=== PATIENT | female | born 1965 | race Caucasian/White ===

== ENCOUNTER 2021-02-13 07:42 | Day surgery (SDC) | payer MEDICARE, OTHER, SELFPAY ==
[2021-01-16 09:56] VITALS: BMI 33.0
--- NOTE | 2021-01-31 12:58 | HP_ITS ---
DATE OF SERVICE: 02/13/2021 DATE OF PROPOSED SURGERY: February 13, 2021. PREOPERATIVE DIAGNOSIS: Hallux rigidus, right first metatarsophalangeal joint. PLANNED PROCEDURE: An arthrodesis of the right first metatarsophalangeal joint using the [employer] CheckMate system. PLANNED ANESTHESIA: Either MAC or general. CHIEF COMPLAINT AND HISTORY OF PRESENT ILLNESS: Elisabet Fall is a 55-year-old female, who relates history of painful arthritic right great toe joint, present over the past several years' duration. Her pain is aggravated by shoe gear and walking activity. Conservative treatment consisting of multiple cortisone injections from the arthritis treatment center as well as use of topical pain relief medications has not helped. The patient also tried altered shoe gear, which did not help. The patient is now requesting surgical treatment. PAST MEDICAL HISTORY: Remarkable for arthritis, history of liver disease, psoriasis, Sjogren syndrome. CURRENT MEDICATIONS: The patient has Ocaliva, omeprazole, Salagen, Tremfya, or ursodiol. ALLERGIES: THE PATIENT HAS NEGATIVE REACTION TO CODEINE. FAMILY HISTORY: Significant for heart disease and cancer. SOCIAL HISTORY: The patient denies use of any recreational drugs. She relates she is smoking, but is trying to cut down on her consumption to less than half a pack a day and hopefully stop smoking altogether prior to surgery. I have emphasized to the patient preoperatively the importance of smoking cessation to overall healing as well as bone healing specifically. The patient does relate alcohol consumption and also relates that she drinks caffeinated drinks daily. PHYSICAL EXAMINATION: VASCULAR: Reveals normal pulses. Normal cap refill time noted in bilateral feet. NEUROLOGIC: Reveals intact sensation. The patient has pain on palpation dorsum right first metatarsophalangeal joint. ORTHOPEDIC: Reveals extremely limited and painful range of motion of the right first metatarsophalangeal joint with painful dorsal exostosis noted. DERMATOLOGIC: Reveals intact skin. The patient was seen most recently in my office on January 28, 2021. Preoperative informed consent has been obtained from the patient for a planned right foot surgery. Preoperative medical clearance will be provided by the patient's primary care physician, Dr. Raghavendra Branch. GAEL Miller / [phone]
--- NOTE | 2021-02-12 12:04 | HO.ANESPROP2 ---
Documented by User: Carrie Vallejo NP 02/12/21 12:07 HPI - Anesthesia Eval Consult details Narrative: 55yo F for Right 1st Metatarsophalangeal Joint Foot Arthrodesis PCP cleared [facility] Past Medical History Medical History (Updated 02/13/21 @ 08:27 by Ana Laura Norris MD) Cholelithiasis Cirrhosis COVID-19 vaccine series completed Depression GERD (gastroesophageal reflux disease) Hx of Sjogren's disease IBS (irritable bowel syndrome) Osteopenia Psoriatic arthritis Surgical History Surgical History H/O colonoscopy History of ankle surgery History of esophagogastroduodenoscopy (EGD) History of lumbar spinal fusion Hx of cervical discectomy Hx of foot surgery Hx of hand surgery Hx of tonsillectomy Social History Social History (Updated 02/13/21 @ 09:23 by Ana Laura Norris MD) Household Members Other:: children & grandchildren Patient Tobacco Use Status: Current everyday Tobacco user Tobacco use type: Cigarette Cigarette Packs Per Day: 1 Cigarettes Per Day: 20.0 Smoked in Last 30 Days: Yes Use of substances other than those prescribed or required for medical reasons: No Advance Directives: No Advance Directives Information Provided: Yes (informational brochure mailed) Advance Directives on File: No Meds Allergies Allergy/AdvReac Type Severity Reaction Status Date / Time codeine Allergy Intermediate Nausea Verified 02/13/21 07:50 Home Medications Medication Instructions Recorded Confirmed Last Taken Type acetaminophen 325 mg capsule 650 mg PO Q6H PRN 01/16/21 01/16/21 Unknown History (Tylenol) albuterol sulfate 90 mcg/actuation 2 puff INHALATION Q6H PRN 01/16/21 01/16/21 Unknown History aerosol inhaler (ProAir HFA) gabapentin 600 mg tablet 600 mg PO TID 01/16/21 01/16/21 02/13/21 06:45 History guselkumab 100 mg/mL subcutaneous 100 mg SUBCUT Q8W 01/16/21 01/16/21 Unknown History auto-injector (Tremfya) omeprazole 20 mg tablet,delayed 20 mg PO DAILY 01/16/21 01/16/21 Unknown History release pilocarpine HCl 5 mg tablet 5 mg PO QID 01/16/21 01/16/21 02/13/21 06:45 History ursodiol 300 mg capsule 600 mg PO TID 01/16/21 01/16/21 02/13/21 06:45 History Exam Exam Date and Time: February 12, 2021 1204 Height,Weight and Vital Signs: Height 5 ft 10 in Weight 104.6 kg Pertinent Lab Results Pertinent Lab Results: Labs from outside facility. CBC and CMP WNL except elevated alk phos @ 237 Narrative Narrative: EKG 12/2020 NSR @ 83 Assessment and Plan Assessment Anesthesia Assessment: Chart Reviewed Documented by User: Ana Laura Norris MD 02/13/21 09:25 PMFSH Past Medical History Medical History (Updated 02/13/21 @ 08:27 by Ana Laura Norris MD) Cholelithiasis Cirrhosis COVID-19 vaccine series completed Depression GERD (gastroesophageal reflux disease) Hx of Sjogren's disease IBS (irritable bowel syndrome) Osteopenia Psoriatic arthritis Family History Family history of problems with anesthesia: No Surgical History Surgical History H/O colonoscopy History of ankle surgery History of esophagogastroduodenoscopy (EGD) History of lumbar spinal fusion Hx of cervical discectomy Hx of foot surgery Hx of hand surgery Hx of tonsillectomy History of Problems with Anesthesia: No Social History Social History (Updated 02/13/21 @ 09:23 by Ana Laura Norris MD) Household Members Other:: children & grandchildren Patient Tobacco Use Status: Current everyday Tobacco user Tobacco use type: Cigarette Cigarette Packs Per Day: 1 Cigarettes Per Day: 20.0 Smoked in Last 30 Days: Yes Use of substances other than those prescribed or required for medical reasons: No Advance Directives: No Advance Directives Information Provided: Yes (informational brochure mailed) Advance Directives on File: No Meds Allergies Allergy/AdvReac Type Severity Reaction Status Date / Time codeine Allergy Intermediate Nausea Verified 02/13/21 07:50 Home Medications Medication Instructions Recorded Confirmed Last Taken Type acetaminophen 325 mg capsule 650 mg PO Q6H PRN 01/16/21 01/16/21 Unknown History (Tylenol) albuterol sulfate 90 mcg/actuation 2 puff INHALATION Q6H PRN 01/16/21 01/16/21 Unknown History aerosol inhaler (ProAir HFA) gabapentin 600 mg tablet 600 mg PO TID 01/16/21 01/16/21 02/13/21 06:45 History guselkumab 100 mg/mL subcutaneous 100 mg SUBCUT Q8W 01/16/21 01/16/21 Unknown History auto-injector (Tremfya) omeprazole 20 mg tablet,delayed 20 mg PO DAILY 01/16/21 01/16/21 Unknown History release pilocarpine HCl 5 mg tablet 5 mg PO QID 01/16/21 01/16/21 02/13/21 06:45 History ursodiol 300 mg capsule 600 mg PO TID 01/16/21 01/16/21 02/13/21 06:45 History Exam Height,Weight and Vital Signs: Height 5 ft 10 in Weight 104.6 kg Vital Signs Temp Pulse Resp BP Pulse Ox 02/13/21 07:58 98.0 F 78 16 145/88 H 99 Airway Mallampati Class: II TM Dist: >3cm Neck ROM: Full Loose/Missing/Broken Teeth: Yes (Top front bridge) Heart: RRR Lungs: CTAB Assessment and Plan Assessment Anesthesia Assessment: Anesthesia Plan Discussed Final Anesthetic Review Family History of Problems with Anesthesia: No History of Problems with Anesthesia: No NPO: Yes ASA Class: III Final Preanesthetic Review: No Changes in Pt Med Stat, Meds/Allgs Chart Reviewed, Consent Obtained/Reviewed and Anes Risks/Benef Reviewed Patient Risk: Intermediate Procedure Risk: Low Assessment/Block/Sedation in SS: Assess/Block/Sedation-SS Anesthetic Plan Anesthetic Plan: GA and MAC: Disposition: Standard PACU
--- NOTE | ~2021-02-13 | FL_ITS ---
EXAMINATION: XR FLUOROSCOPY WITH IMAGES CLINICAL INFORMATION: Foot surgery COMPARISON: None. TECHNIQUE: Fluoroscopy performed by Dr. Raymond. Fluoroscopy time: 3 seconds DAP: 3 2007 [id number] Images: 1 FINDINGS: There is a plate and screws overlying the dorsal side first MTP. Visualized hardware intact. FL/FL guidance in OR IMPRESSION: Fluoroscopy for foot surgery.
[2021-02-13 07:58] VITALS: BP 145/88; PULSE 78; RESP 16; TEMP 36.7; O2SAT 99
[2021-02-13] MEDS: Lactated Ringers 1,000 ML 100 ML IVCONT (08:15)
--- NOTE | 2021-02-13 08:38 | MHC.SHP ---
Pre-Procedural Eval Section A Date of Service: 02/13/21 The patient is an INPATIENT: No Changes since office visit: No Cold of Flu in the past 2 weeks, No New Medical Problems, No Changes in Medication and No Patient answered all questions The History & Physical has been completed within 30 days and I have reviewed it.: Yes Section B Chief Complaint: Hallux Rigidus Relevant Social History: Tobacco Use Medical History: No relevant PMH History of Previous Operations: No relevant previous surgery Allergies: Allergies Allergy/AdvReac Type Severity Reaction Status Date / Time codeine Allergy Intermediate Nausea Verified 02/13/21 07:50 Plan Diagnosis/Plan: Unchanged I have reviewed the history and physical and performed a pertinent physical examination on my patient. No changes have occurred unless specified.
[2021-02-13 10:16] VITALS: BP 135/78; PULSE 79; RESP 20; TEMP 36.1; O2SAT 99
--- NOTE | 2021-02-13 10:17 | PCN2_ITS ---
Brief Operative Note Date of procedure: 02/13/21 Pre-op diagnosis: hallux rigidus right Post-op diagnosis: same Procedure: arthrodesis right first mtpj with checkmate system Anesthesia: LONGA Surgeon: Mark Raymond [employer] Processor: Marianela Blackwood Estimated blood loss (mL): 1.0 Condition: stable Disposition: PACU
[2021-02-13] MEDS: Acetaminophen 325 MG TABLET 650 MG PO (10:20)
[2021-02-13 10:31] VITALS: BP 140/82; PULSE 76; RESP 16
--- NOTE | 2021-02-13 11:44 | OP_ITS ---
SURGEON: Mark Raymond DPM PREOPERATIVE DIAGNOSIS: Hallux rigidus, right foot. POSTOPERATIVE DIAGNOSIS: Hallux rigidus, right foot. PROCEDURE PERFORMED: Arthrodesis of the right first metatarsophalangeal joint utilizing the CrossCHECK plating system. ESTIMATED BLOOD LOSS: COMPLICATIONS: ANESTHESIA: Consisted of general endotracheal anesthesia as well as preoperative administration of a total of 12 mL of an equal mix of 2% lidocaine with epinephrine 1:100,000 and 0.5% Marcaine plain. ASSISTANTS: Dr. Blackwood. SPECIMENS: INTRODUCTION: The patient was brought to the operating room, placed on the operating table in the supine position. After having been suitably anesthetized with local infiltrative anesthesia, the right lower extremity was then prepped and draped in the usual sterile manner. ARTHRODESIS OF THE RIGHT FIRST METATARSOPHALANGEAL JOINT. Attention was directed to the dorsum of the right first metatarsophalangeal joint, where an incision approximately 8 cm in length was effected and centered over the dorsum of the right first metatarsophalangeal joint. Incision was deepened in the same plane and hemostasis was acquired as necessary. The skin margins were underscored and retracted. A dorsal linear capsule incision was effected. The capsule and periosteum were underscored and retracted. Utilizing the CrossCHECK plating system from [employer], both the head of the metatarsal and base of the proximal phalanx were shaped to accommodate 18 mm cone for the plating system. Once the entire articular surfaces had denuded and denuded of all cartilage and brought down to subchondral bleeding bone, then the joint was further prepared by drilling through the subchondral bone multiple times through both the first metatarsal head and base of proximal phalanx. A small amount of Vitoss was placed inside the joint to help stimulate bony union and bone healing. Then utilizing the CrossCHECK plating system, it was fixated initially with 2 stabilizing K-wires in the proximal holes and then appropriate drilling and fixation utilizing 4 locking screws through the 4 dorsal holes and then the 1 nonlocking screw, all 3.5 mm diameter, placed in the angular from dorsal distal to proximal crossing the first MTP joint. All the fixation was done under mini C-arm visualization. Unfortunately, we did have malfunction with mini C-arm and techs had entered the room to try to straighten it out after turning the system off and restarting the mini C-arm, then functioned normally. The wound was irrigated. Capsule was closed with 3-0 Vicryl. Skin margin was closed with 4-0 Maxon subcuticular and then reinforced with 4-0 nylon simple sutures. Steri-Strips were applied. The postoperative surgical site was injected with 5 mL of Marcaine 0.5% plain and 1 mL of dexamethasone phosphate. Sterile dressings were applied to the right lower extremity. The right ankle tourniquet was deflated. Normal blood flow was reestablished to the right lower extremity. The patient was discharged to Recovery via cart with vital signs stable. FINAL DISPOSITION: The patient is discharged to home with instructions for self-care and include the followin. To keep the dressings dry, clean, and intact. 2. To keep the right leg elevated with ice above the ankle. 3. To take all medications as prescribed. 4. To limit activity to minimum. 5. To always use surgical shoe or walking cast boot, but maintain strict nonweightbearing status on the right lower extremity either utilizing her crutches or the knee scooter, which she has already picked up preoperatively. 6. The patient will be taking naproxen 500 mg, total number of 20 one p.o. b.i.d. p.c., doxycycline 100 mg for 10 days daily; oxycodone 5 mg total number of 20, sig 1 p.o. q.6 hours p.r.n. pain, and lastly, prescription for gabapentin 400 mg total number of 30 one p.o. t.i.d. p.r.n. pain. GAEL Miller / [phone]
== END 2021-02-13 11:46 | disposition home or self-care (01) ==
PROVIDERS: PCP Internal Medicine; Visit Provider Podiatrist
PROC: (CPT 28740; principal; 2021-02-13 09:10)
DX: M20.21 Hallux rigidus, right foot (principal); L40.50 Arthropathic psoriasis, unspecified; M35.00 Sjogren syndrome, unspecified; Z79.899 Other long term (current) drug therapy
CPT/HCPCS: 28291; 88304; 88311; C1713; J0690; J1100; J1885; J2370; J2405; J3010

== ENCOUNTER 2022-08-12 09:23 | Emergency (ER) | payer MEDICARE, OTHER, SELFPAY ==
--- NOTE | ~2022-08-12 | XR_ITS ---
EXAMINATION: XR CHEST CLINICAL INFORMATION: Chest pain COMPARISON: None available. TECHNIQUE: 2 views of the chest were obtained. FINDINGS: No significant abnormality is noted involving the heart, lungs, mediastinum, bony thorax or soft tissues. Surgical clips noted at the lower neck. XR/XR chest 2V IMPRESSION: Unremarkable examination.
[2022-08-12 09:26] VITALS: BP 135/66; PULSE 89; RESP 19; TEMP 36.6; O2SAT 97; BMI 33.9
--- NOTE | 2022-08-12 09:27 | ECG_ITS ---
Test Reason : CHEST PAIN Blood Pressure : / mmHG Vent. Rate : 078 BPM Atrial Rate : 078 BPM P-R Int : 158 ms QRS Dur : 094 ms QT Int : 372 ms P-R-T Axes : 008 021 031 degrees QTc Int : 424 ms Normal sinus rhythm Normal ECG No previous ECGs available Referred By: Generic ED Physician Electronically Signed By:DEEP TALBOT MD
--- NOTE | 2022-08-12 10:08 | ED_ITS ---
HPI - Chest Pain General Chief Complaint: Chest Pain Stated Complaint: Chest pain Time Seen by Provider: 08/12/22 10:08 Source: patient Mode of arrival: ambulatory Limitations: no limitations History of Present Illness HPI narrative: Patient is a 56-year-old female with history of GERD, IBS, cholelithiasis, cirrhosis presenting with midsternal chest pain since Wednesday night around 6pm. She states that the pain has been constant since onset and occasionally radiates to her left anterior chest. Pain worsens with eating or drinking, worse after belching. Tried Gaviscon without relief. Feels as though something is stuck there. Has been able to tolerate food and fluid without difficulty. History of GERD but reports this does not feel similar. Denies nausea, vomiting, diarrhea, or constipation. Denies fevers. Denies shortness of breath or cough, pain does not increase with deep inspiration. MD complaint: chest pain Onset (ago): day(s) Timing of current episode: constant Prior episodes: No Onset: during rest and after eating Pain location: substernal and epigastric Pain radiation: none Pain scale (0-10): 4 Quality: sharp Relieving factors: nothing Exacerbating factors: eating Related Data Home Medications Medication Instructions Recorded Confirmed acetaminophen 325 mg capsule 650 mg PO Q6H PRN Pain 01/16/21 01/16/21 (Tylenol) albuterol sulfate 90 mcg/actuation 2 puff inhalation Q6H PRN 01/16/21 01/16/21 aerosol inhaler (ProAir HFA) Shortness Of Breath gabapentin 600 mg tablet 600 mg PO TID 01/16/21 01/16/21 guselkumab 100 mg/mL subcutaneous 100 mg subcut Q8W 01/16/21 01/16/21 auto-injector (Tremfya) omeprazole 20 mg tablet,delayed 20 mg PO DAILY 01/16/21 01/16/21 release pilocarpine HCl 5 mg tablet 5 mg PO QID 01/16/21 01/16/21 ursodiol 300 mg capsule 600 mg PO TID 01/16/21 01/16/21 Allergies Allergy/AdvReac Type Severity Reaction Status Date / Time codeine Allergy Intermediate Nausea Verified 02/13/21 07:50 Review of Systems Review of Systems: As per HPI. Yes all other systems are reviewed and are negative Constitutional: Constitutional: Reports no additional constitutional complaints Cardiovascular: Cardiovascular: Reports no additional cardiovascular complaints Respiratory: Respiratory: Reports no additional respiratory complaints Gastrointestinal: Gastrointestinal: Reports no additional gastrointestinal complaints Genitourinary: Genitourinary: Reports no additional female genitourinary complaints Musculoskeletal: Musculoskeletal: Reports no additional musculoskeletal complaints Neurologic: Reports system reviewed and no additional complaints, except as documented [facility] Past Medical History Medical History (Updated 08/12/22 @ 12:36 by Karly Zendejas NP) Cholelithiasis Cirrhosis COVID-19 vaccine series completed Depression GERD (gastroesophageal reflux disease) Hx of Sjogren's disease IBS (irritable bowel syndrome) Osteopenia Psoriatic arthritis Surgical History H/O colonoscopy History of ankle surgery History of esophagogastroduodenoscopy (EGD) History of lumbar spinal fusion Hx of cervical discectomy Hx of foot surgery Hx of hand surgery Hx of tonsillectomy Social History Social History (Updated 02/13/21 @ 09:23 by Ana Laura Norris MD) Household Members Other:: children & grandchildren Patient Tobacco Use Status: Current everyday Tobacco user Tobacco use type: Cigarette Cigarette Packs Per Day: 1 Cigarettes Per Day: 20.0 Advance Directives: No Advance Directives Information Provided: Yes Physical Exam Vital Signs: Vital Signs: Last Vital Signs Temp 98 F 08/12/22 09:26 Pulse 89 08/12/22 09:26 Resp 19 08/12/22 09:26 BP 135/66 08/12/22 09:26 Pulse Ox 97 08/12/22 09:26 O2 Del Method Room Air 08/12/22 09:26 BMI result Body Mass Index 33.9 Vital signs have been reviewed and appear to be correct. Blood pressure normal. Heart rate normal. Respiratory rate normal. Temperature normal. Oxygen saturation normal. Const: General: cooperative, healthy appearing and no acute distress Orientation/consciousness: oriented to person, oriented to place, oriented to time and patient oriented x3 Limitations: no limitations HEENT: Head: Yes normocephalic and Yes atraumatic Ears: external ears normal General nose exam: Normal external nose present Face and sinus: Yes face symmetric Mouth: oropharynx normal and moist mucous membranes Throat: Yes uvula midline Eyes: Pupils: Equal, round and reactive pupils present Neck: Neck: Yes normal visual inspection and Yes supple Resp: Effort & Inspection: normal respiratory effort and able to speak in complete sentences Auscultation: clear to auscultation bilaterally Cardio: Rate: regular rate Rhythm: regular rhythm Heart sounds: S1 normal heart sound present and S2 normal heart sound present GI: Palpation (GI): Soft to palpation and nontender Auscultation: normoactive bowel sounds : General: Yes no CVA tenderness Back/Spine/Pelvis: Back: no CVA tenderness Skin: General skin exam: elasticity normal and turgor normal Neuro: General: oriented to person, oriented to place, oriented to time, patient oriented x3, moves all extremities, no focal motor deficits and CN's II- XI intact bilaterally Cranial nerves: Yes Equal, round and reactive pupils present Cognition (Neuro): normal cognition Extrem: General: Yes full ROM, Yes no pedal edema and Yes no calf tenderness Psych: Mental Status: mental status grossly normal Affect: normal affect Thought process: Normal thought process present Course Reevaluation(s) Reevaluation #1: Labs unremarkable other than elevated alk phos, however patient has known liver disease. Feel patient is stable for discharge home with GI follow up. All results discussed with patient and all questions answered, return precautions discussed at bedside. Patient is agreeable with plan. Time: 12:31 Medications Administered Discontinued Medications Generic Name Dose Route Start Last Admin Trade Name Charlieq PRN Reason Stop Dose Admin Al Hydroxide/Mg Hydroxide 15 ml 08/12/22 10:44 08/12/22 11:33 Magnesium Hydrox/Alum Hydrox 30 Ml Oral.Susp PO 08/12/22 10:45 15 ml ONCE ONE Administration Lidocaine HCl 5 ml 08/12/22 10:44 08/12/22 11:33 Lidocaine Hcl Viscous 2 % 15 Ml Solution MUCOUS MEM 08/12/22 10:45 5 ml ONCE ONE Administration Pantoprazole Sodium 40 mg 08/12/22 10:44 08/12/22 11:34 Pantoprazole Sodium 40 Mg/10 Ml Vial IVPUSH 08/12/22 10:45 40 mg ONCE ONE Administration Medical Decision Making Medical Decision Making [facility] Narrative: Patient is a 56-year-old female with history of GERD, IBS, cholelithiasis, cirrhosis presenting with midsternal chest pain since Moody night around 6pm. No evidence of STEMI on EKG. On exam patient is awake, A+Ox3, in no acute distress, nontoxic appearing, RRR, LS CTA, ABD SNT. Concern for ACS vs GERD. Other differential diagnoses could include pancreatitis, PUD, cholecystitis, biliary colic. Unlikely aortic dissection, esophageal rupture, PE, PTX, pericarditis/endocarditis. Plan: labs, CXR, GI cocktail, reassess Please refer to course for remaining clinical decision making. Differential Diagnosis Differential Diagnoses: The differential diagnosis associated with the presentation includes As above. Admission/Observation Consideration of admission/observation: Escalation of care including admission/observation considered Lab Data MDM Lab Attestation statement: I reviewed the patient's lab results. 08/12/22 10:37 08/12/22 10:37 Labs: Lab Results 08/12/22 08/12/22 08/12/22 Range/Units 10:37 10:37 10:37 WBC 7.6 (4.8-10.8) X10*3/uL RBC 4.53 (4.20-5.50) X10*6/uL Hgb 10.9 L (12.0-16.0) g/dl Hct 35.7 L (37.0-47.0) % MCV 78.8 L (80.0-98.0) fL MCH 24.1 L (27.0-33.0) pg MCHC 30.5 L (31.0-35.0) g/dl RDW 16.3 H (11.0-16.0) % Plt Count 152 L (160-400) X10*3/uL MPV 10.5 (9.4-12.3) fL Immature Gran % (Auto) 0.1 (0.0-0.4) % Neut % (Auto) 69.7 (45-73) % Lymph % (Auto) 16.1 L (20-40) % [place] % (Auto) 12.3 H (2-11) % Eos % (Auto) 1.4 (0-4) % Baso % (Auto) 0.4 (0-2) % Lymph # (Auto) 1.2 (1.2-4.9) X10*3/uL [place] # (Auto) 0.9 (0.1-1.2) X10*3/uL Eos # (Auto) 0.1 (0.0-0.4) X10*3/uL Baso # (Auto) 0.0 (0.0-0.2) X10*3/uL Abs Immat Gran (auto) 0.01 (0.00-0.03) X10*3/uL Absolute Neuts (auto) 5.3 (2.0-8.3) x10*3/uL Absolute Nucleated RBC 0.000 (0.0-0.012) X10*3/uL Nucleated RBC % (auto) 0.0 (0.0-0.2) /100WBC PT 11.5 (10.0-13.1) SEC INR 1.0 (0.9-1.1) Sodium (135-145) mmol/L Potassium (3.3-5.1) mmol/L Chloride (96-108) mmol/L Carbon Dioxide (22-29) mmol/L Anion Gap (12-20) BUN (9-16) mg/dL Creatinine (0.5-1.4) mg/dL Estim Creat Clear Calc Estimated GFR Random Glucose (60-115) mg/dL Calcium (8.4-10.2) mg/dL Magnesium (1.6-2.6) mg/dL Total Bilirubin (0.0-1.0) mg/dL AST (5-31) U/L ALT (0-31) U/L Alkaline Phosphatase (39-117) U/L Troponin I High Sens < 2.7 (<3.5-17.0) ng/L Total Protein (6.5-8.0) g/dL Albumin (3.5-5.0) g/dL Lipase (8-78) U/L 08/12/22 Range/Units 11:22 WBC (4.8-10.8) X10*3/uL RBC (4.20-5.50) X10*6/uL Hgb (12.0-16.0) g/dl Hct (37.0-47.0) % MCV (80.0-98.0) fL MCH (27.0-33.0) pg MCHC (31.0-35.0) g/dl RDW (11.0-16.0) % Plt Count (160-400) X10*3/uL MPV (9.4-12.3) fL Immature Gran % (Auto) (0.0-0.4) % Neut % (Auto) (45-73) % Lymph % (Auto) (20-40) % [place] % (Auto) (2-11) % Eos % (Auto) (0-4) % Baso % (Auto) (0-2) % Lymph # (Auto) (1.2-4.9) X10*3/uL [place] # (Auto) (0.1-1.2) X10*3/uL Eos # (Auto) (0.0-0.4) X10*3/uL Baso # (Auto) (0.0-0.2) X10*3/uL Abs Immat Gran (auto) (0.00-0.03) X10*3/uL Absolute Neuts (auto) (2.0-8.3) x10*3/uL Absolute Nucleated RBC (0.0-0.012) X10*3/uL Nucleated RBC % (auto) (0.0-0.2) /100WBC PT (10.0-13.1) SEC INR (0.9-1.1) Sodium 139 (135-145) mmol/L Potassium 4.0 (3.3-5.1) mmol/L Chloride 105 (96-108) mmol/L Carbon Dioxide 27 (22-29) mmol/L Anion Gap 11 L (12-20) BUN 8 L (9-16) mg/dL Creatinine 0.80 (0.5-1.4) mg/dL Estim Creat Clear Calc 101.5 Estimated GFR > 60 Random Glucose 114 (60-115) mg/dL Calcium 8.7 (8.4-10.2) mg/dL Magnesium 2.1 (1.6-2.6) mg/dL Total Bilirubin 1.0 (0.0-1.0) mg/dL AST 20 (5-31) U/L ALT 17 (0-31) U/L Alkaline Phosphatase 193 H (39-117) U/L Troponin I High Sens (<3.5-17.0) ng/L Total Protein 7.4 (6.5-8.0) g/dL Albumin 3.6 (3.5-5.0) g/dL Lipase 59 (8-78) U/L Independent Interpretation I performed an independent interpretation of an: EKG and Plain X-Ray Interpretation: EKG: normal sinus rhythm, rate 78bpm, normal MI and QT intervals, no evidence of STEMI; I independently reviewed the x-ray and agree with the radiologist's interpretation. Radiology Impression Discussion of test interpretation with radiology: I have reviewed the radiologist's reading. Radiologist Impression: FINDINGS: No significant abnormality is noted involving the heart, lungs, mediastinum, bony thorax or soft tissues. Surgical clips noted at the lower neck. XR/XR chest 2V IMPRESSION: Unremarkable examination. External Record Review External record reviewed: Inpatient record, Office record and Outpatient record Prescription Management I considered prescription management with: Pain Medication Discharge Plan Discharge Clinical Impression: Chest pain Patient Disposition: Home, Self-Care Instructions: Chest Pain (DC) Additional Instructions: You were evaluated in the emergency department today for chest pain. Your evaluation has shown no signs of medical conditions requiring emergent intervention at this time, however we recommend that you follow-up with your primary care physician as well as a department of natural resources officer as soon as possible for further testing as an outpatient. Please schedule an appointment for follow-up with your primary care physician as soon as possible. Return to the emergency department if you experience worsening or uncontrolled chest pain, shortness of breath, lightheadedness, feeling faint, loss of consciousness, nausea, vomiting, or any other concerning symptoms. Prescriptions: No Action pilocarpine HCl 5 mg Tablet 5 mg PO QID gabapentin 600 mg Tablet 600 mg PO TID ursodiol 300 mg Capsule 600 mg PO TID albuterol sulfate [ProAir HFA] 90 mcg/actuation Hfa Aerosol Inhaler 2 puff INHALATION Q6H PRN (Reason: Shortness Of Breath) acetaminophen [Tylenol] 325 mg Capsule 650 mg PO Q6H PRN (Reason: Pain) omeprazole 20 mg Tablet,Delayed Release (Dr/Ec) 20 mg PO DAILY Tremfya 100 mg/mL Auto-Injector 100 mg SUBCUT Q8W Referrals: [facility] [place] [facility] [Provider Group]
[2022-08-12 10:50] LABS: MANUAL DIFF FLAG NO
[2022-08-12 10:52] LABS: Basophils Percent Auto 0.4 % (0-2); Eosinophils Absolute Auto 0.1 X10*3/uL (0.0-0.4); Eosinophils Percent Auto 1.4 % (0-4); Hematocrit 35.7 % (37.0-47.0); Hemoglobin 10.9 g/dl (12.0-16.0); Imm Gran Abs Auto 0.01 X10*3/uL (0.00-0.03); Imm Gran Pct Auto 0.1 % (0.0-0.4); Lymphocytes Absolute Auto 1.2 X10*3/uL (1.2-4.9); Lymphocytes Percent Auto 16.1 % (20-40); Mean Corpuscular HGB Conc 30.5 g/dl (31.0-35.0); Mean Corpuscular Hemoglobin 24.1 pg (27.0-33.0); Mean Corpuscular Volume 78.8 fL (80.0-98.0); Mean Platelet Volume 10.5 fL (9.4-12.3); Monocytes Absolute Auto 0.9 X10*3/uL (0.1-1.2); Monocytes Percent Auto 12.3 % (2-11); Neutrophils Absolute Auto 5.3 x10*3/uL (2.0-8.3); Neutrophils Percent Auto 69.7 % (45-73); Platelet Count 152 X10*3/uL (160-400); Red Blood Count 4.53 X10*6/uL (4.20-5.50); Red Cell Distribution Width 16.3 % (11.0-16.0); White Blood Count 7.6 X10*3/uL (4.8-10.8)
[2022-08-12 10:58] LABS: Prothrombin Time 11.5 SEC (10.0-13.1)
[2022-08-12 11:13] LABS: Troponin-I High Sensitivity < 2.7 ng/L (<3.5-17.0)
[2022-08-12] MEDS: Lidocaine HCl Viscous 2 % 15 ML SOLUTION 5 ML MUCOUS MEM (11:33)
[2022-08-12] MEDS: Magnesium Hydrox/Alum Hydrox 30 ML ORAL.SUSP 15 ML PO (11:33)
[2022-08-12] MEDS: Pantoprazole Sodium 40 MG/10 ML VIAL IVPUSH (11:34)
[2022-08-12 11:43] LABS: Alanine Aminotransferase 17 U/L (0-31); Albumin Level 3.6 g/dL (3.5-5.0); Alkaline Phosphatase 193 U/L (39-117); Anion Gap 11 (12-20); Aspartate Amino Transferase 20 U/L (5-31); Blood Urea Nitrogen 8 mg/dL (9-16); Calcium 8.7 mg/dL (8.4-10.2); Carbon Dioxide 27 mmol/L (22-29); Chloride 105 mmol/L (96-108); Creatinine Clr Calc Pharmacy 101.5; Estimated Glomerular Filt Rate > 60; Glucose Random 114 mg/dL (60-115); Lipase 59 U/L (8-78); Magnesium 2.1 mg/dL (1.6-2.6); Sodium 139 mmol/L (135-145); Total Protein 7.4 g/dL (6.5-8.0)
== END 2022-08-12 13:10 | disposition home or self-care (01) ==
PROVIDERS: Registered Nurse Emergency; Emergency Provider Emergency Medicine; PCP Internal Medicine
DX: R07.9 Chest pain, unspecified (principal)
CPT/HCPCS: 36415; 71046; 80053; 83690; 83735; 84484; 85025; 85610; 93005; 96374; 99283; 99284

== ENCOUNTER 2023-01-20 17:25 | Emergency (ER) | payer MEDICARE, OTHER, SELFPAY ==
--- NOTE | ~2023-01-20 | XR_ITS ---
EXAMINATION: XR RIBS, RIGHT CLINICAL INFORMATION: Right rib pain COMPARISON: Previous chest x-ray July 2022 TECHNIQUE: 3 views of the right ribs and one view of the chest were obtained. FINDINGS: The cardiac and mediastinal contours are normal. Minimal subsegmental atelectasis lateral mid right lung. The lungs are otherwise clear. No pleural effusion or pneumothorax. No acute rib fracture. Old right second and seventh rib fractures. Postsurgical changes of the cervical spine. XR/XR ribs RT min 3V w CXR1V IMPRESSION: No acute rib fracture. No evidence for acute disease in the chest.
--- NOTE | ~2023-01-20 | CT_ITS ---
EXAMINATION: CT CHEST WITHOUT CONTRAST CLINICAL INFORMATION: Severe right-sided pain. Fall. COMPARISON: Chest and right rib x-rays from earlier the same day TECHNIQUE: Multidetector volumetric CT imaging of the chest was done. Axial MIP volume rendering provided. Sagittal and coronal reformatted images were obtained. This CT examination was performed using dose optimization techniques as appropriate, variously including the following: *Automated exposure control *Adjustment of mA and/or kV according to patient size (this includes techniques or standardized protocols for targeted exams where dose is matched to indication/reason for exam; i.e. extremities or head) *Use of iterative reconstruction technique DLP: 405 mGy-cm FINDINGS: SENSITIZER: LUNGS: 3 mm calcified right upper lobe nodule axial image 27 series 3. Subsegmental atelectasis in the right middle lobe and lingula. Centrilobular emphysema. Heterogeneous attenuation in the lungs questionable areas of air-trapping versus pneumonitis. MEDIASTINUM: Small mediastinal lymph nodes. No enlarged lymph nodes. Normal heart size. No pericardial effusion. Normal caliber thoracic aorta.. CORONARY ARTERY CALCIFICATION: None visualized on this study. PLEURA: There is no pleural effusion. No pleural mass or thickening. No pneumothorax AXILLA: Small bilateral axillary lymph nodes. No chest wall mass or enlarged axillary lymph nodes UPPER ABDOMEN: Cirrhosis and mild hepatosplenomegaly. Question gallstone in the gallbladder. Small left renal stone OSSEOUS STRUCTURES: No acute fracture. Old right second rib fracture. Postsurgical changes to the lower cervical spine. CT/CT chest wo IV con IMPRESSION: No acute disease in the chest. No acute rib fracture seen. Centrilobular emphysema and question cystic changes. Heterogeneous attenuation in the lungs, question representing hypoventilatory changes related to air trapping versus pneumonitis. Abdominal findings as above. Fleischner guidelines were followed.
[2023-01-20 17:53] VITALS: BP 207/86; PULSE 87; RESP 20; TEMP 36.8; O2SAT 97; BMI 30.1
--- NOTE | 2023-01-20 17:55 | ED_ITS ---
HPI - General Adult General Chief complaint: Fall Stated complaint: fell @230p, landed on chest. hurts to breathe Time Seen by Provider: 01/20/23 19:54 Source: patient Mode of arrival: ambulatory Limitations: no limitations History of Present Illness HPI narrative: 57 yo female with PMH of asthma, GERD, not on thinners who went to get up today from her chair when her dogs got under her feet. She does have chronic back pain as well - she fell on the ground after trying to catch herself and landed on R ribs under the arm - it hurts to move and breathe. No head strike or other injury. MD complaint: rib pain after a fall Onset (ago): hour(s) (this AM) Location: chest Radiation: back Severity: severe Quality: stabbing Pain Consistency: constant Relieving factors: rest Exacerbating factors: movement and other (breathing) Associated symptoms: denies other symptoms Treatments prior to arrival: none Related Data Home Medications Medication Instructions Recorded Confirmed acetaminophen 325 mg capsule 650 mg PO Q6H PRN Pain 01/16/21 01/16/21 (Tylenol) albuterol sulfate 90 mcg/actuation 2 puff inhalation Q6H PRN 01/16/21 01/16/21 aerosol inhaler (ProAir HFA) Shortness Of Breath gabapentin 600 mg tablet 600 mg PO TID 01/16/21 01/16/21 guselkumab 100 mg/mL subcutaneous 100 mg subcut Q8W 01/16/21 01/16/21 auto-injector (Tremfya) omeprazole 20 mg tablet,delayed 20 mg PO DAILY 01/16/21 01/16/21 release pilocarpine HCl 5 mg tablet 5 mg PO QID 01/16/21 01/16/21 ursodiol 300 mg capsule 600 mg PO TID 01/16/21 01/16/21 Previous Rx's Medication Instructions Recorded lidocaine 5 % topical patch 1 patch topical DAILY #30 ea 01/20/23 morphine 15 mg immediate release 15 mg PO Q6H PRN pain #14 tabs 01/20/23 tablet Allergies Allergy/AdvReac Type Severity Reaction Status Date / Time codeine Allergy Intermediate Nausea Verified 02/13/21 07:50 Review of Systems Review of Systems: Constitutional : No Weight loss, No Fever, No Chills ENT/Mouth : No sore throat, No Rhinorrhea Eyes: No Eye Pain, No Swelling Cardiovascular : pos Chest Pain, pos SOB, no Dyspnea on Exertion, No Orthopnea, No Edema, No Palpitations Respiratory : No Cough, No Sputum Gastrointestinal : no Nausea, No Vomiting, No Diarrhea, No abdominal Pain, No Hematochezia, No Melena Genitourinary : No Dysuria, No Urinary Frequency Musculoskeletal : No joint pain, No Myalgias, No Joint Swelling Skin : No Skin Lesions, No rash Neuro : No Weakness, No Numbness, No Dizziness, No Headache Psych : No Anxiety/Panic, No Depression All other systems reviewed and are negative [facility] Past Medical History Attestation statement: The following information was validated with the patient. Source: old records reviewed Medical History Cholelithiasis COVID-19 vaccine series completed Hx of Sjogren's disease Psoriatic arthritis Osteopenia IBS (irritable bowel syndrome) Depression GERD (gastroesophageal reflux disease) Cirrhosis Surgical History History of ankle surgery Hx of foot surgery Hx of hand surgery Hx of tonsillectomy History of esophagogastroduodenoscopy (EGD) History of lumbar spinal fusion Hx of cervical discectomy H/O colonoscopy Social History Social History Household Members Other:: children & grandchildren Patient Tobacco Use Status: Current everyday Tobacco user Tobacco use type: Cigarette Cigarette Packs Per Day: 1 Cigarettes Per Day: 20.0 Advance Directives: No Advance Directives Information Provided: No Physical Exam ED Vital Signs: Vital Signs - 24 hr 01/20/23 17:53 01/20/23 19:23 Temperature 98.2 F 98.4 F Pulse Rate 87 68 Respiratory Rate 20 16 Blood Pressure 207/86 H 178/87 H Pulse Oximetry 97 99 Oxygen Delivery Method Room Air Room Air BMI result Body Mass Index 30.1 Course Course Course Narrative: This is an RME: Additional HPI, ROS, PE not included below will be deferred to primary provider. This is a [id number]-female, with a hx of GERD, IBS, cholelithiasis, cirrhosis presenting to the emergency department with complaints of right-sided rib pain status post mechanical fall which occurred today. Patient states that she tripped over her dog and landed on her right rib. Denies hitting her head or loss of consciousness. She is reporting 10 attend right-sided rib pain. No abdominal pain, nausea, vomiting. She endorses right-sided rib pain with deep inspiration. She took ibuprofen prior to her arrival today. Lungs clear to auscultation bilaterally Plan: Right rib x-ray and chest ordered. Further ER evaluation needed. Reevaluation(s) Reevaluation #1: no issues before fall doubt pneumonitis Medical Decision Making Medical Decision Making MDM Narrative: 57 yo female with PMH of asthma, chronic back pain, GERD, PBSC not on thinners who tripped and fell on her dog today landing on R ribs at this time she is in a fair amount of pain xray does not show PTX I am ordering pain medications will obtain CT of chest for rib fractures. No other injuries reported. Differential Diagnosis Differential Diagnoses: The differential diagnosis associated with the presentation includes rib fractures, PTX, strain, contusion, rib contusion Admission/Observation Consideration of admission/observation: Escalation of care including admission/observation considered can be managed at home with pain control Independent Interpretation I performed an independent interpretation of an: Plain X-Ray (no PTX) and CT Scan (no rib fracture or PTX) Radiology Impression Discussion of test interpretation with radiology: I have reviewed the radiologi st's reading. External Record Review External record reviewed: Office record Prescription Management I considered prescription management with: Pain Medication and Other Discharge Plan Discharge Clinical Impression: Contusion of rib on right side Qualifiers: Encounter type: initial encounter Qualified Code(s): S20.211A - Contusion of right front wall of thorax, initial encounter Patient Disposition: Home, Self-Care Instructions: Rib Contusion (ED) Additional Instructions: take deep breathes while awake 10 an hour to prevent pneumonia. return for fevers, worsening pain/breathing, or any other concerns. you have some small nodules in the lung would repeat CT Scan in 6 months with your doctor. no signs of acute fracture today, old healed 2nd R sided rib fracture no lifting over 10lbs for 2 weeks Prescriptions: New lidocaine 5 % adhesive patch,medicated 1 patch topical DAILY Qty: 30 0RF Rx Instructions: leave on most painful area for up to 12 hrs morphine 15 mg tablet 15 mg PO Q6H PRN (Reason: pain) Qty: 14 0RF Rx Instructions: partial fill okay; Partial Fill upon patient request. No Action pilocarpine HCl 5 mg Tablet 5 mg PO QID gabapentin 600 mg Tablet 600 mg PO TID ursodiol 300 mg Capsule 600 mg PO TID albuterol sulfate [ProAir HFA] 90 mcg/actuation Hfa Aerosol Inhaler 2 puff INHALATION Q6H PRN (Reason: Shortness Of Breath) acetaminophen [Tylenol] 325 mg Capsule 650 mg PO Q6H PRN (Reason: Pain) omeprazole 20 mg Tablet,Delayed Release (Dr/Ec) 20 mg PO DAILY Tremfya 100 mg/mL Auto-Injector 100 mg SUBCUT Q8W
[2023-01-20 19:23] VITALS: BP 178/87; PULSE 68; RESP 16; TEMP 36.9; O2SAT 99
[2023-01-20] MEDS: Morphine Sulfate Immed Release 15 MG TABLET PO (21:44)
[2023-01-20] MEDS: Ondansetron ODT 4 MG TAB.RAPDIS TRANSLINGU (21:44)
[2023-01-20 21:50] VITALS: BP 154/81; PULSE 71; RESP 13; TEMP 36.9; O2SAT 95
== END 2023-01-20 21:52 | disposition home or self-care (01) ==
PROVIDERS: Emergency Provider Emergency Medicine; PCP Internal Medicine
DX: S20.211A Contusion of right front wall of thorax, initial encounter (principal); R07.81 Pleurodynia; M54.6 Pain in thoracic spine; W01.10XA Fall on same level from slipping, tripping and stumbling with subsequent striking against unspecified object, initial encounter; Y93.9 Activity, unspecified; Y92.9 Unspecified place or not applicable; Y99.9 Unspecified external cause status; Z79.899 Other long term (current) drug therapy
CPT/HCPCS: 71101; 71250; 99284

== ENCOUNTER 2023-01-24 15:55 | Emergency (ER) | payer MEDICARE, OTHER, SELFPAY ==
--- NOTE | ~2023-01-24 | XR_ITS ---
EXAMINATION: XR CHEST CLINICAL INFORMATION: Central chest pain COMPARISON: None available. TECHNIQUE: 2 views of the chest were obtained. FINDINGS: Findings suggest a small right-sided effusion. Adjacent atelectasis or infiltrate may be present. Opacities in the right midlung consistent with infiltrate. Mild left basilar atelectasis. No effusion. The cardiac silhouette is comparable. XR/XR chest 2V IMPRESSION: Probable small right-sided effusion with adjacent atelectasis or infiltrate and right midlung atelectasis/infiltrate. Mild atelectasis left base. Continued follow-up recommended
[2023-01-24 16:09] VITALS: BP 163/71; PULSE 76; RESP 18; TEMP 36.7; O2SAT 98; BMI 30.1
--- NOTE | 2023-01-24 16:10 | ED_ITS ---
[facility] - General Adult General Chief complaint: Chest Pain Stated complaint: sternum pain s/p fall Time Seen by Provider: 01/24/23 16:36 Source: patient Mode of arrival: ambulatory History of Present Illness HPI narrative: 57-year-old female who is an everyday smoker fell last week onto her right side and was evaluated on Wednesday with a CT scan of the chest which did not identify any issues with pneumothorax or rib fractures. She returns today with complaints of continued right-sided chest discomfort but denies any fevers or chills but states that the medication that she was sent home with is far too strong and does not really take the pain away. Related Data Home Medications Medication Instructions Recorded Confirmed acetaminophen 325 mg capsule 650 mg PO Q6H PRN Pain 01/16/21 01/16/21 (Tylenol) albuterol sulfate 90 mcg/actuation 2 puff inhalation Q6H PRN 01/16/21 01/16/21 aerosol inhaler (ProAir HFA) Shortness Of Breath gabapentin 600 mg tablet 600 mg PO TID 01/16/21 01/16/21 guselkumab 100 mg/mL subcutaneous 100 mg subcut Q8W 01/16/21 01/16/21 auto-injector (Tremfya) omeprazole 20 mg tablet,delayed 20 mg PO DAILY 01/16/21 01/16/21 release pilocarpine HCl 5 mg tablet 5 mg PO QID 01/16/21 01/16/21 ursodiol 300 mg capsule 600 mg PO TID 01/16/21 01/16/21 Previous Rx's Medication Instructions Recorded lidocaine 5 % topical patch 1 patch topical DAILY #30 ea 01/20/23 morphine 15 mg immediate release 15 mg PO Q6H PRN pain #14 tabs 01/20/23 tablet amoxicillin 875 mg-potassium 1 tab PO BID 5 days #10 tabs 01/24/23 clavulanate 125 mg tablet ketorolac 10 mg tablet 10 mg PO Q6H PRN pain 5 days #20 01/24/23 tabs Allergies Allergy/AdvReac Type Severity Reaction Status Date / Time codeine Allergy Intermediate Nausea Verified 02/13/21 07:50 Review of Systems 2 Review of Systems: Pertinent positives and negatives as stated in the [facility] Past Medical History Source: nursing notes reviewed Medical History Cholelithiasis COVID-19 vaccine series completed Hx of Sjogren's disease Psoriatic arthritis Osteopenia IBS (irritable bowel syndrome) Depression GERD (gastroesophageal reflux disease) Cirrhosis Surgical History History of ankle surgery Hx of foot surgery Hx of hand surgery Hx of tonsillectomy History of esophagogastroduodenoscopy (EGD) History of lumbar spinal fusion Hx of cervical discectomy H/O colonoscopy Social History Social History Household Members Other:: children & grandchildren Patient Tobacco Use Status: Current everyday Tobacco user Tobacco use type: Cigarette Cigarette Packs Per Day: 1 Cigarettes Per Day: 20.0 Advance Directives: No Advance Directives Information Provided: No Patient : No Physical Exam ED Vital Signs: Vital Signs - 24 hr 01/24/23 16:09 Temperature 98.1 F Pulse Rate 76 Respiratory Rate 18 Blood Pressure 163/71 H Pulse Oximetry 98 Oxygen Delivery Method Room Air BMI result Body Mass Index 30.1 VITAL SIGNS: Reviewed. GENERAL: Well developed, well nourished, in no acute distress. HEAD: Normocephalic/atraumatic EYES: PERRLA, EOMI EARS: Ext canals without abnormality NOSE: Nares patent bilateral OROPHARYNX: no oral lesions noted, posterior pharynx clear NECK: Supple, no adenopathy LUNGS: Normal breath sounds. No adventitious sounds or accessory muscle use. SpO2<98> CARDIOVASCULAR: Regular rate and rhythm without noted murmurs ABDOMEN: Soft, non-tender, non-distended with bowel sounds. MUSCULOSKELETAL: No tenderness, deformities, or effusions noted on gross inspection. EXTREMITIES: No cyanosis, clubbing or edema. SKIN: Inspection of the skin reveals no rashes NEUROLOGIC: Alert and oriented x 4. Strength and sensation to light touch were grossly intact x 4. Course Course Course Narrative: RME performed by Asiya Zaragoza PA-C. Patient is a 57 year old assigned female at presenting to the emergency department with central chest pain. Patient states that she fell 4 days ago and had a chest scan but is now having central chest pain that is worse with breathing. Labs, imaging, and swab ordered. Patient placed back in the waiting room pending room availability and results. Medications Administered Discontinued Medications Generic Name Dose Route Start Last Admin Trade Name Thee PRN Reason Stop Dose Admin Acetaminophen 975 mg 01/24/23 17:10 01/24/23 18:06 Acetaminophen 325 Mg Tablet PO 01/24/23 17:11 975 mg ONCE ONE Administration Ketorolac Tromethamine 15 mg 01/24/23 17:10 01/24/23 18:06 Ketorolac Tromethamine 15 Mg/Ml Vial IM 01/24/23 17:11 15 mg ONCE ONE Administration Lidocaine 1 patch 01/24/23 17:10 01/24/23 18:06 Lidocaine 4 % Patch Adh..Patch TRANSDERMA 01/24/23 17:11 1 patch ONCE ONE Administration Protocol Medical Decision Making Medical Decision Making [facility] Narrative: 57-year-old female with history and clinical presentation, DDX: pneumonia, musculoskeletal pain, costochondritis and less likely felt to be pneumothorax or rib fracture. I reviewed all investigations and lab work continues to be chronically stable hematologic indices are without leukocytosis but there is a mild left shift otherwise no thrombocytopenia and there is a stable microcytic anemia without history or clinical findings to suggest current blood loss. Coagulation studies are within normal limits. Chemistry indices are grossly within normal limits without evidence of DAVID I or electrolyte/liver enzyme abnormalities. Alkaline phosphatase is chronically elevated and high sensitivity troponin is undetectable. Viral testing is negative for influenza/RSV /COVID. Chest x-ray is significant for right-sided effusion and infiltrate. Patient was treated with combination analgesics to include lidocaine patch as well as initial antibiotics. All results and findings were discussed with her at bedside. My interpretation is patient has a pneumonia secondary to poor inspiratory effort from blunt injury last week. Differential Diagnosis Differential Diagnoses: The differential diagnosis associated with the presentation includes please see the discussion above Admission/Observation Consideration of admission/observation: Escalation of care including admission/observation considered please see the discussion above Lab Data [facility] Lab Attestation statement: I reviewed the patient's lab results. please see the discussion above 01/24/23 16:30 01/24/23 16:30 Labs: Lab Results 01/24/23 01/24/23 Range/Units 16:30 16:31 WBC 7.2 (4.8-10.8) X10*3/uL RBC 4.74 (4.20-5.50) X10*6/uL Hgb 11.3 L (12.0-16.0) g/dl Hct 35.8 L (37.0-47.0) % MCV 75.5 L (80.0-98.0) fL MCH 23.8 L (27.0-33.0) pg MCHC 31.6 (31.0-35.0) g/dl RDW 15.2 (11.0-16.0) % Plt Count 193 D (160-400) X10*3/uL MPV 10.3 (9.4-12.3) fL Immature Gran % (Auto) 0.6 H (0.0-0.4) % Neut % (Auto) 77.4 H (45-73) % Lymph % (Auto) 12.6 L (20-40) % [place] % (Auto) 6.5 (2-11) % Eos % (Auto) 2.5 (0-4) % Baso % (Auto) 0.4 (0-2) % Lymph # (Auto) 0.9 L (1.2-4.9) X10*3/uL [place] # (Auto) 0.5 (0.1-1.2) X10*3/uL Eos # (Auto) 0.2 (0.0-0.4) X10*3/uL Baso # (Auto) 0.0 (0.0-0.2) X10*3/uL Abs Immat Gran (auto) 0.04 H (0.00-0.03) X10*3/uL Absolute Neuts (auto) 5.6 (2.0-8.3) x10*3/uL Absolute Nucleated RBC 0.000 (0.0-0.012) X10*3/uL Nucleated RBC % (auto) 0.0 (0.0-0.2) /100WBC PT 11.5 (11.1-13.3) SEC INR 0.9 (0.9-1.1) APTT 31.2 (26.0-36.4) SEC Sodium 141 (135-145) mmol/L Potassium 3.7 (3.3-5.1) mmol/L Chloride 104 (96-108) mmol/L Carbon Dioxide 29 (22-29) mmol/L Anion Gap 12 (12-20) BUN 10 (9-16) mg/dL Creatinine 0.75 (0.5-1.4) mg/dL Estim Creat Clear Calc 101.0 Estimated GFR > 60 Random Glucose 100 (60-115) mg/dL Calcium 9.3 D (8.4-10.2) mg/dL Magnesium 1.9 (1.6-2.6) mg/dL Total Bilirubin 0.5 (0.0-1.0) mg/dL AST 18 (5-31) U/L ALT 7 (0-31) U/L Alkaline Phosphatase 208 H (39-117) U/L Troponin I High Sens < 2.7 (<3.5-17.0) ng/L Total Protein 8.4 H (6.5-8.0) g/dL Albumin 3.9 (3.5-5.0) g/dL Influenza Type A (PCR) NEGATIVE (Negative) Influenza Type B (PCR) NEGATIVE (Negative) RSV RNA Qual (PCR) NEGATIVE (Negative) SARS-CoV-2 RNA (RT-PCR) NEGATIVE (Negative) Independent Interpretation I performed an independent interpretation of an: EKG Interpretation: normal sinus rhythm, HR - 70, no STEMI, LA /QRS / QTC is within normal limits. Radiology Impression Discussion of test interpretation with radiology: I have reviewed the radiologist's reading. Radiologist Impression: Please see the discussion above External Record Review External record reviewed: Outpatient record, Prior outpatient labs and Prior outpatient radiology Critical Care Time Critical Care Time Critical Care Time: Yes Total Critical Care Time: 30 Attestation: I personally attest to this time spent taking care of the patient. Discharge Plan Discharge Clinical Impression: Chest wall pain, Pneumonia Patient Disposition: Home, Self-Care Instructions: Pneumonia (ED), Chest Wall Pain (ED) Additional Instructions: 1. Resume all home medications as prescribed. 2. Tylenol 1000 mg, orally, every 6 hours as needed for pain control. Do not exceed 4000 mg within 24 hours. 3. Lidocaine patch, apply to area maximal tenderness as directed on the outside packaging. 4. Complete the entire course of antibiotics as prescribed. 5. Please follow-up with your primary care doctor by calling the office 1st thing in the morning. Return to the ER for any worsening symptoms. Prescriptions: New ketorolac 10 mg tablet 10 mg PO Q6H PRN (Reason: pain) 5 Days Qty: 20 0RF Rx Instructions: Patient received Toradol in the emergency room amoxicillin-pot clavulanate 875-125 mg tablet 1 tab PO BID 5 Days Qty: 10 0RF No Action pilocarpine HCl 5 mg Tablet 5 mg PO QID gabapentin 600 mg Tablet 600 mg PO TID ursodiol 300 mg Capsule 600 mg PO TID albuterol sulfate [ProAir HFA] 90 mcg/actuation Hfa Aerosol Inhaler 2 puff INHALATION Q6H PRN (Reason: Shortness Of Breath) acetaminophen [Tylenol] 325 mg Capsule 650 mg PO Q6H PRN (Reason: Pain) omeprazole 20 mg Tablet,Delayed Release (Dr/Ec) 20 mg PO DAILY Tremfya 100 mg/mL Auto-Injector 100 mg SUBCUT Q8W lidocaine 5 % adhesive patch,medicated 1 patch topical DAILY Qty: 30 0RF Rx Instructions: leave on most painful area for up to 12 hrs morphine 15 mg tablet 15 mg PO Q6H PRN (Reason: pain) Qty: 14 0RF Rx Instructions: partial fill okay; Partial Fill upon patient request. Referrals: Raghavendra Branch MD [Primary Care Provider] -
--- NOTE | 2023-01-24 16:13 | ECG_ITS ---
Test Reason : CP Blood Pressure : / mmHG Vent. Rate : 070 BPM Atrial Rate : 070 BPM P-R Int : 182 ms QRS Dur : 088 ms QT Int : 394 ms P-R-T Axes : 013 038 016 degrees QTc Int : 425 ms Normal sinus rhythm Normal ECG When compared with ECG of 12-AUG-2022 09:40, No significant change was found Referred By: Asiya Zaragoza Electronically Signed By:CATHY ALFREDO MD
[2023-01-24 16:36] LABS: MANUAL DIFF FLAG NO
[2023-01-24 16:37] LABS: Basophils Percent Auto 0.4 % (0-2); Eosinophils Absolute Auto 0.2 X10*3/uL (0.0-0.4); Eosinophils Percent Auto 2.5 % (0-4); Hematocrit 35.8 % (37.0-47.0); Hemoglobin 11.3 g/dl (12.0-16.0); Imm Gran Abs Auto 0.04 X10*3/uL (0.00-0.03); Imm Gran Pct Auto 0.6 % (0.0-0.4); Lymphocytes Absolute Auto 0.9 X10*3/uL (1.2-4.9); Lymphocytes Percent Auto 12.6 % (20-40); Mean Corpuscular HGB Conc 31.6 g/dl (31.0-35.0); Mean Corpuscular Hemoglobin 23.8 pg (27.0-33.0); Mean Corpuscular Volume 75.5 fL (80.0-98.0); Mean Platelet Volume 10.3 fL (9.4-12.3); Monocytes Absolute Auto 0.5 X10*3/uL (0.1-1.2); Monocytes Percent Auto 6.5 % (2-11); Neutrophils Absolute Auto 5.6 x10*3/uL (2.0-8.3); Neutrophils Percent Auto 77.4 % (45-73); Platelet Count 193 X10*3/uL (160-400); Red Blood Count 4.74 X10*6/uL (4.20-5.50); Red Cell Distribution Width 15.2 % (11.0-16.0); White Blood Count 7.2 X10*3/uL (4.8-10.8)
[2023-01-24 16:43] LABS: INTERNATIONAL NORM RATIO 0.9 (0.9-1.1); Prothrombin Time 11.5 SEC (11.1-13.3)
[2023-01-24 16:45] LABS: Partial Thromboplastin Time 31.2 SEC (26.0-36.4)
[2023-01-24 16:52] LABS: Alanine Aminotransferase 7 U/L (0-31); Albumin Level 3.9 g/dL (3.5-5.0); Alkaline Phosphatase 208 U/L (39-117); Anion Gap 12 (12-20); Aspartate Amino Transferase 18 U/L (5-31); Bilirubin Total 0.5 mg/dL (0.0-1.0); Blood Urea Nitrogen 10 mg/dL (9-16); Calcium 9.3 mg/dL (8.4-10.2); Carbon Dioxide 29 mmol/L (22-29); Chloride 104 mmol/L (96-108); Estimated Glomerular Filt Rate > 60; Glucose Random 100 mg/dL (60-115); Magnesium 1.9 mg/dL (1.6-2.6); Potassium 3.7 mmol/L (3.3-5.1); Sodium 141 mmol/L (135-145); Total Protein 8.4 g/dL (6.5-8.0)
[2023-01-24 17:00] LABS: Troponin-I High Sensitivity < 2.7 ng/L (<3.5-17.0)
[2023-01-24 17:14] LABS: Influenza A PCR NEGATIVE (Negative); Influenza B PCR NEGATIVE (Negative); Resp Syncy Virus RNA Qual PCR NEGATIVE (Negative); SARS COV2 PCR INHOUSE NEGATIVE (Negative)
[2023-01-24] MEDS: Ketorolac Tromethamine 15 MG/ML VIAL IM (18:06)
[2023-01-24] MEDS: Acetaminophen 325 MG TABLET 975 MG PO (18:06)
[2023-01-24] MEDS: Lidocaine 4 % Patch ADH..PATCH 1 PATCH TRANSDERMA (18:06)
[2023-01-24 19:35] VITALS: PULSE 62
[2023-01-24] MEDS: Amoxicillin/Potassium Clav 875 MG TABLET PO (19:35)
[2023-01-24 19:39] VITALS: BP 140/79; PULSE 79; RESP 18; TEMP 37; O2SAT 97
== END 2023-01-24 19:41 | disposition home or self-care (01) ==
PROVIDERS: Physician Assistant Medical; Emergency Provider Student in an Organized Health Care Education/Training Program; PCP Internal Medicine
DX: R07.89 Other chest pain (principal); J18.9 Pneumonia, unspecified organism; Z91.81 History of falling; Z20.822 Contact with and (suspected) exposure to COVID-19; Z20.828 Contact with and (suspected) exposure to other viral communicable diseases; F17.210 Nicotine dependence, cigarettes, uncomplicated
CPT/HCPCS: 0241U; 71046; 80053; 83735; 84484; 85025; 85610; 85730; 93005; 96372; 99284; 99285; J1885